=== PATIENT | male | born 1985 | race Caucasian/White ===

== ENCOUNTER 2019-05-19 10:36 | Emergency (ER) | payer BC, OTHER ==
[~2019-05-19] VITALS: Ht 180.3 cm; Wt 83.9 kg
[~2019-05-19 10:36] MED LIST: Bactrim Ds Tab1 EACH PO; Keflex500 MG PO; Norco 5-325 Ta1 EACH PO; SULTRIDS PO
[2019-05-19] MEDS ORDERED: CEPH500 PO (13:44)
[2019-05-19] MEDS ORDERED: Percocet 5-3251 EACH PO (13:44)
== END 2019-05-19 14:15 | disposition home or self-care (01) ==
LOC: ER 10:36
DX: S62.326A Displaced fracture of shaft of fifth metacarpal bone, right hand, initial encounter for closed fracture (principal); S62.350A Nondisplaced fracture of shaft of second metacarpal bone, right hand, initial encounter for closed fracture; Z87.891 Personal history of nicotine dependence; W23.1XXA Caught, crushed, jammed, or pinched between stationary objects, initial encounter
CPT/HCPCS: 29125; 73130; 90471; 90714; 99283-25